=== PATIENT | female | born 1995 | race Caucasian/White ===

== ENCOUNTER 2025-08-15 09:33 | Outpatient (REF) | payer OTHER, SELFPAY ==
[2025-08-15 13:13] LABS: MANUAL DIFF FLAG NO
[2025-08-15 13:16] LABS: Hematocrit 45.4 % (37.0-47.0); Hemoglobin 14.8 g/dl (12.0-16.0); Imm Gran Abs Auto 0.08 X10*3/uL (0.00-0.03); Imm Gran Pct Auto 0.7 % (0.0-0.4); Lymphocytes Absolute Auto 3.4 X10*3/uL (1.2-4.9); Mean Corpuscular HGB Conc 32.6 g/dl (31.0-35.0); Mean Corpuscular Hemoglobin 27.9 pg (27.0-33.0); Mean Corpuscular Volume 85.5 fL (80.0-98.0); NRBC Abs Auto 0.000 X10*3/uL (0.0-0.012); NRBC Pct Auto 0.0 /100WBC (0.0-0.2); Platelet Count 261 X10*3/uL (160-400); Red Blood Count 5.31 X10*6/uL (4.20-5.50); White Blood Count 11.1 X10*3/uL (4.8-10.8)
[2025-08-15 13:39] LABS: Alanine Aminotransferase 46 U/L (0-31); Albumin Level 4.6 g/dL (3.5-5.0); Alkaline Phosphatase 98 U/L (39-117); Anion Gap 12 (12-20); Aspartate Amino Transferase 28 U/L (5-31); Blood Urea Nitrogen 12 mg/dL (9-16); Calcium 9.5 mg/dL (8.4-10.2); Carbon Dioxide 25 mmol/L (22-29); Chloride 112 mmol/L (96-108); Cholesterol 147 mg/dL (<200); Estimated Glomerular Filt Rate > 60; HDL Cholesterol 33 mg/dL (>40); Potassium 4.8 mmol/L (3.3-5.1); Sodium 144 mmol/L (135-145); Total Protein 6.9 g/dL (6.5-8.0); Triglycerides 140 mg/dL (<150)
[2025-08-15 15:17] LABS: Free T4 (Free Thyroxine) 1.01 ng/dL (0.71-1.85)
[2025-08-21 13:08] LABS: Testosterone, Free 10.8 pg/mL (0.1-6.4)
== END 2025-08-15 09:34 | disposition home or self-care (01) ==
LOC: HO.10HDL 09:33
PROVIDERS: Visit Provider Physician Assistant
DX: Z00.00 Encounter for general adult medical examination without abnormal findings (principal); J45.909 Unspecified asthma, uncomplicated; E66.9 Obesity, unspecified; Z68.38 Body mass index [BMI] 38.0-38.9, adult; E28.2 Polycystic ovarian syndrome; F31.9 Bipolar disorder, unspecified; F17.210 Nicotine dependence, cigarettes, uncomplicated; Z71.6 Tobacco abuse counseling; Z71.3 Dietary counseling and surveillance
CPT/HCPCS: 36415; 80048; 80061; 80076; 82306; 82627; 83036; 84402; 84403; 84439; 84443; 85025; 99212; 99385

== ENCOUNTER 2025-08-15 09:33 | Outpatient (AMB) | payer OTHER, SELFPAY ==
--- NOTE | 2025-08-15 09:37 | A.OFFPC_ITS ---
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 Accompanied by: Self / Same As Patient Allergies haloperidol (From Haldol) Allergy (Severe, Verified 08/15/25 09:40) Anaphylaxis Medication List - Last Reconciled 08/15/25 by ARMANI Henao medroxyprogesterone (Provera) 5 mg PO DAILY Tobacco use date assessed: 08/15/25 Dental Screening Dental Screen Date: 08/15/25 Did you have a dental visit in the last 12 months?: No Did you have a dental problem in the last 6 months where you did not have access to dental care?: No Was dental information given to patient?: Patient declined HPI HPI Comments History of Present Illness Details 29-year-old female with history of asthm a, PCOS, obesity who is a current 1 pack cigarettes per day presenting to the office today to establish care and for annual physical exam. She was last seen at [place] over 1 year ago. She currently lives at home with her fiance as well as 2 children-ages 2 and 10-and feels safe there. She is currently not employed, takes care of her children. She continues smoking 1 pack of cigarettes per day. Rare alcohol use. She does smoke marijuana but no other illicit drug use. No vaping. PCOS-diagnosed years ago. She does endorse irregular periods stating they will occasionally come monthly or be absent for several months. She does experience lower abdominal/pelvic cramping. No excessive hair growth. Does have significant trouble losing weight. Cigarette smoking-smokes 1 pack per day ongoing for years. She has tried nicotine replacement without effect. She is interested in Chantix Obesity- BMI 38.0. Does not eat much. Munches throughout the day, not healthy food. Craves east foods due to decreased appetite. Was going to the gym 5 times per week for one hour per day. She declines referral to nutrition and declines prescription for metformin given presumed insulin resistance related to her PCOS Concerns: As above Health maintenance: Due for rn gynecology Colonoscopy age 46 Mammograms age 41 Weight management as above Sunscreen Annual eye exams-wears corrective lenses Advised to schedule dental exam Reviewed past medical, surgical, family, social history ROS: General: No fevers, malaise, unintentional weight loss HEENT: No blurred vision, diplopia. No sore throat, nasal congestion, rhinorrhea, sinus pain, ear pain. No hearing loss Neck - no adenopathy Cardiovascular: No chest pain, palpitations, or leg edema Respiratory: No shortness of breath, wheezing, cough Breast: No pain, palpable lumps, nipple inversion GI: No dysphagia, odynophagia, globus sensation. No abdominal pain, nausea, vomiting, diarrhea, constipation, melena, hematochezia : No dysuria, hematuria, increased urinary frequency, decreased urinary output. 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 No AH/VH. No SI/HI Skin: No rashes or lesions EXAM: Constitutional - Awake and Alert, No apparent distress Eyes - PERRLA, EOMI. Anicteric Ears - external ears normal, canals clear, TMs intact and pearly rodriguez with good cone of light Nose- septum midline, nares clear, no sinus tenderness Mouth/throat- mucosa moist, tongue and uvula midline, no erythema/edema or tonsillar adenopathy. Neck-trachea midline, thyroid symmetric without palpable nodules, no adenopathy Cardiovascular - S1S2, RRR, No edema Respiratory - Normal lung expansion, Normal respiratory effort, No respiratory distress, CTA bilaterally Gastrointestinal - NT / ND; +BS; No rebound or guarding - No CVA tenderness Extremities - no calf tenderness bilaterally, no swelling Musculoskeletal - Normal inspection, normal ROM Skin - Warm/Dry, no concerning lesions Neurological - Alert & oriented x3, CN II-XII in tact, 5/5 strength BUE and BLE, 2+ patellar reflexes, sensation intact Psychological - Appropriate affect PFSH Medical History Cigarette smoker Amenorrhea Bipolar disorder Obesity Asthma PCOS (polycystic ovarian syndrome) Surgical History S/P urethral surgery Family History Mother HTN (hypertension) Diabetes Chest pain Social History Housing: Apartment Alcohol intake: current Alcohol intake frequency: holidays/special occasions only Patient Tobacco Use Status: Current everyday Tobacco user e-Cigarette/Vaping Use: Never Used Substance Use Type: Marijuana service: No Current occupational status: disabled Cognitive needs: No Hearing needs: No Vision needs: Yes (Rx glasses prn) Questionnaire PHQ-9 Over the last 2 weeks, how often have you been bothered by any of the following problems? 1. Little interest or pleasure in doing things: not at all 2. Feeling down, depressed, or hopeless: not at all 3. Trouble falling or staying asleep, or sleeping too much: more than half the days 4. Feeling tired or having little energy: more than half the days 5. Poor appetite or overeating: more than half the days 6. Feeling bad about yourself - or that you are a failure or have let yourself or your family down: not at all 7. Trouble concentrating on things, such as reading the newspaper or watching television: not at all 8. Moving or speaking so slowly that other people could have noticed. Or the opposite - being so fidgety or restless that you have been moving around a lot more than usual: not at all 9. Thoughts that you would be better off or of hurting yourself in some way: not at all Total score: 6 Depression Screening Interpretation: Positive Depression Screening Done: Yes Source: Developed by Drs. Celestino Espinoza, Sherrie Neumann, Kevin Gray and colleagues, with an educational arianna from [employer]. Thrive Questionnaire Date Thrive assessed: 08/15/25 I am a: Patient What is your living situation today?: I have a steady place to live Within the past 12 months, did the food you bought not last and you didn't have the money to get more?: Never true Within the past 12 months, did you worry whether your food would run out before you got money to buy more?: Never true Do you have trouble paying for medicines?: No Do you have trouble getting transportation to medical appointments?: No Do you have trouble paying your heating and electricity bill?: No Do you have trouble taking care of your child, family member or friend?: No Do you have trouble with day-to-day activities such as bathing, preparing meals, shopping, managing finances, etc.?: No Are you currently unemployed and looking for a job?: No Are you interested in more education?: No Please select the resources that you would like help with: None THRIVE Score: 0 ANA LILIA-7 AMB Questionnaire ANA LILIA-7 Date ANA LILIA - 7 assessed: 08/15/25 Feeling nervous, anxious, or on edge: 1 = Several days Not being able to stop or control worryin = Not at all Worrying too much about different things: 0 = Not at all Trouble relaxin = Not at all Being so restless that it is hard to sit still: 0 = Not at all Becoming easily annoyed or irritable: 2 = More than half the days Feeling afraid as if something awful might happen: 0 = Not at all Total ANA LILIA-7 score (0-4 normal; 5-9 mild; 10-14 moderate; 15-21 severe): 3 Source: Developed by Drs. Celestino Espinoza, Sherrie Neumann, Kevin Gray and colleagues, with an educational arianna from [employer]. Physical exam (Primary Care) Vital Signs: Last Vital Signs Temp 96.9 F 08/15/25 09:41 Pulse 77 08/15/25 09:41 Resp 16 08/15/25 09:41 BP 116/68 08/15/25 09:41 Pulse Ox 96 08/15/25 09:41 Oxygen Delivery Method Room Air 08/15/25 09:41 BMI result Body Mass Index 38.0 Tobacco/Smoking Status: Tobacco use Status Tobacco use date assessed 08/15/25 08/15/25 09:43 Patient Tobacco Use Status Current everyday Tobacco 08/15/25 09:43 e-Cigarette/Vaping Use Never Used 08/15/25 09:43 PHQ-9: PHQ-9 Score PHQ-9: Total score 6 08/15/25 10:39 Depression Screening Interpretation: Positive Thrive Assessment: Date of Thrive Assessment Date Thrive assessed 08/15/25 08/15/25 10:39 Coding Level of Care Code Est Pt Level 4 (36114) New Pt Prev Care 18-39yr(76799 Diagnoses Routine medical exam Z00.00 Amenorrhea N91.2 Asthma J45.909 Obesity E66.9 PCOS (polycystic ovarian syndrome) E28.2 Bipolar disorder F31.9 Cigarette smoker F17.210 Assessment & Plan Assessment & Plan (1) Routine medical exam: Code(s): Z00.00 - Encounter for general adult medical examination without abnormal findings Category: Medical Plan: 21-year-old female presenting for annual physical exam. Plan as below (2) Amenorrhea: Code(s): N91.2 - Amenorrhea, unspecified Category: Medical Plan: Likely related to PCOS. Provera prescribed. She is also referred to rn gynecology for further evaluation and management (3) Asthma: Code(s): J45.909 - Unspecified asthma, uncomplicated Category: Medical Plan: Uncontrolled. Add Advair for maintenance therapy. Counseled on dosing and advised to rinse mouth well following use. Continue albuterol only as needed for shortness of breath, goal less than twice weekly (4) Obesity: Code(s): E66.9 - Obesity, unspecified Category: Medical Plan: She has made significant weight loss efforts in the past without any significant improvements. She is encouraged to return to the gym for at least 150 minutes of moderate intensity exercise per week. She declines referral to nutrition. Is agreeable to referral to weight management (5) PCOS (polycystic ovarian syndrome): Code(s): E28.2 - Polycystic ovarian syndrome Category: Medical Plan: Check testosterone levels as well as DHEA. Amenorrhea as above. Declines metformin at this time which can help with insulin resistance. Refer to rn gynecology for further evaluation and management. Provera prescribed to induced menses as above (6) Bipolar disorder: Comment: Treated age 19 Code(s): F31.9 - Bipolar disorder, unspecified Category: Medical Plan: Stable. Not currently on medications (7) Cigarette smoker: Code(s): F17.210 - Nicotine dependence, cigarettes, uncomplicated Category: Social Hx Plan: Smoking cessation advised. Has not had any improvements with nicotine replacement therapies. Would like to try Chantix. We did discuss significant side effects and she is advised to discontinue the medication should these arise and contact the office. However, if symptoms are severe, advised to present to the ED Plan Routine screening labs as ordered below Referred for Pap smear Continue following for annual skin exams and use sun protection Annual eye exams Advised to schedule dental exam Wear seat belt in car Recommend regular exercise and healthy diet Follow-up in 1 year for annual physical exam. Orders: Orders Lipid Panel Today E28.2 - Polycystic ovarian syndrome, Z00.00 - Encounter for general adult medical examination without abnormal findings Vitamin D 25-OH Total Today E28.2 - Polycystic ovarian syndrome, Z00.00 - Encounter for general adult medical examination without abnormal findings Basic Metabolic Panel Today E28.2 - Polycystic ovarian syndrome, Z00.00 - Encounter for general adult medical examination without abnormal findings Complete Blood Count Auto Diff Today E28.2 - Polycystic ovarian syndrome, Z00.00 - Encounter for general adult medical examination without abnormal find ings Liver Panel Today E28.2 - Polycystic ovarian syndrome, Z00.00 - Encounter for general adult medical examination without abnormal findings Hemoglobin A1c Today E28.2 - Polycystic ovarian syndrome, Z00.00 - Encounter for general adult medical examination without abnormal findings TSH reflex Free T4 Today E28.2 - Polycystic ovarian syndrome, Z00.00 - Encounter for general adult medical examination without abnormal findings Testosterone, Free/Total Today E28.2 - Polycystic ovarian syndrome DHEA Sulfate Today E28.2 - Polycystic ovarian syndrome Referrals SAILMAKER Referral E28.2 - Polycystic ovarian syndrome, Z12.4 - Encounter for screening for malignant neoplasm of cervix Medical Weight Management Referral E66.9 - Obesity, unspecified Medications: New albuterol sulfate 90 mcg/actuation (Ventolin HFA) 2 puffs inhalation Q6H PRN 8.5 grams 0RF shortness of breath or wheezing loratadine (Allergy Relief (loratadine)) 10 mg PO DAILY PRN 90 caps 0RF allergy symptoms, rash triamcinolone acetonide 0.1% 1 appl topical BID 30 grams 5RF medroxyprogesterone (Provera) 5 mg PO DAILY 10 tabs 0RF varenicline tartrate (Chantix Starting Month Box) PO PER PKG DIR 53 ea 0RF fluticasone propion-salmeterol 250-50 mcg/dose (Advair Diskus) 1 inh inhalation BID 180 ea 1RF Patient Instructions: Rash- take claritin and us triamcinolone Asthma- Advair disc twice daily to maintain asthma symptons- you will not feel this working like albuterol. Rinse mouth well following use. Albuterol as ne eded. 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 Provera given to induce menses. Referral to weight management
[2025-08-15 09:41] VITALS: BP 116/68; PULSE 77; RESP 16; TEMP 36.1; O2SAT 96; BMI 38.0
--- OUTSIDE RECORDS SUMMARY | 2025-08-15 10:54 | XMS_ITS | Clinical Summary ---
Author Organization [facility] [address] [facility] [address] Address [address] [place] [address] Phone Care Team Providers Care Ink Blender Name Role Phone Jacinda Woods DO Primary Care Provider [phone] Allergies Active Allergy Reactions Criticality Noted Date Comments Haloperidol Anaphylaxis High 06/07/2016 Haldol Medications permethrin (ELIMITE) 5 % cream Apply head to soles for 8-14 hours then rinse off. Repeat in 7 days 10/04/2020 Active naproxen (NAPROSYN) 500 mg tablet TAKE 1 TABLET BY MOUTH TWICE A DAY NEEDED FOR PAIN FOR 7 DAYS 03/11/2024 Active hydrOXYzine HCL (ATARAX) 10 mg tablet Take 1 tablet (10 mg total) by mouth. 10/04/2020 Active medroxyPROGESTER one (PROVERA) 10 mg tablet Take 1 tablet (10 mg total) by mouth 1 (one) time each day. 10 each 5 10/29/2024 Active Active Problems Problem Noted Date Diagnosed Date ADHD 10/16/2017 Anxiety and depression 10/16/2017 Bipolar 1 disorder 10/16/2017 Surgical History Surgery Date Site/Laterality Comments OTHER SURGICAL HISTORY 2005 PROCEDURE: [place] CLOSURE URETHROVAGINAL FISTULA WISDOM TOOTH EXTRACTION 2012 PROCEDURE: HISTORICAL WISDOM TEETH EXTRACTION Medical History Medical History Date Comments Bipolar 1 disorder (CMS/HCC V24, CMS/HCC V28) DX:Bipolar 1 disorder (HCC); COMMENT: hx of suicide attempts last one being 06/2015 Hx of suicide attempt DX:Hx of s uicide attempt Family History Medical History Relation Name Comments Other: Autism Brother 1 younger Hypertension Brother 2 Bipolar disorder Father Depression Mother Other: prediabetes Sister Relation Name Status Comments Brother 1 younger Alive Brother 2 Alive Father Alive Mother Alive Sister Alive Social History Tobacco Use Types Packs/Day Years Used Date Smoking Tobacco: Every Day Cigarettes Smokeless Tobacco: Never Alcohol Use Standard Drinks/Week Comments No 0 (1 standard drink = 0.6 oz pur e alcohol) Comments No Sex and Gender Information Value Date Recorded Sex Assigned at Not on file Legal Sex Female 11:30 PM EST Gender Identity Not on file Sexual Orientation Not on file Obstetrics History Para Term AB IAB SAB Ectopic Multiple Livin g Live Births 1 1 1 1 1 Date Outcome GA Total Labor Labor/2nd/3rd Weight Sex Type Anes PTL Rissa A1 A5 Name Clin 2014 Term 42w 0d M Vag-S pont Epidur al Livin g jignesh Comments:[facility] Last Filed Vital Signs Vital Sign Reading Time Taken Comments Blood Pressure 135/76 10/29/2024 11:07 AM EST Pulse 80 10/29/2024 11:07 AM EST Temperature - - Respiratory Rate - - Oxygen Saturation - - Inhaled Oxygen Concentration - - Weight 95.3 kg (210 lb) 10/29/2024 11:07 AM EST Height - - Body Mass Index - - Plan of Treatment Health Maintenance Due Date Last Done Comments Pneumococcal Vaccine: Pediatrics (0 to 5 Years) and At-Risk Patients (6 to 49 Years) (1 of 2 - PCV) 2015 Social Influencers of Health Screening 08/03/2022 Cholesterol Screening (Lipid Panel) 10/16/2022 10/16/2017 Depression Screening 08/25/2024 DTaP,Tdap,and Td Vaccines (7 - Td or Tdap) 08/30/2024 08/30/2014, 05/09/2002, 06/08/1998, Additional history exists COVID-19 Vaccine ( - season) 2025 Influenza Vaccine (#1) 2025 05/25/2014 Cervical Cancer Screening: Pap Smear 10/30/2027 10/29/2024, 09/22/2020, 09/22/2020, Additional history exists RSV Immunization Adult Patients (1 - 1-dose 75+ series) 2071 Hepatitis B Vaccines Completed 10/09/1997, 1996, 1996 HIB Vaccines Completed 01/06/1998, 03/25, 02/06/1997, Additional history exists MMR Vaccines Completed 05/06/2001, 01/06/1998 IPV Vaccines Completed 05/09/2002, 03/25, 02/06/1997, Additional history exists Meningococcal ACWY Vaccine Aged Out 05/25/2008 N o longer eligible based on patient's age to complete this topic Varicella Vaccines Aged Out 05/25/2008, 05/09/1997 No longer eligible based on patient's age to complete this topic HPV Vaccines Completed 10/12/2013, 11/2012, 04/08/2013 HIV Screening Completed 10/16/2017 Hepatitis C Screening Completed 10/16/2017 Hepatitis A Vaccines Aged Out No long er eligible based on patient's age to complete this topic Meningococcal B Vaccine Aged Out No l onger eligible based on patient's age to complete this topic RSV Immunization Patients Under 20 months Aged Out No longer eligible based on patient's age to complete this topic Procedures Procedure Name Priority Date/Time Associated Diagnosis Comments PAP SMEAR Routine 10/29/2024 11:25 AM EST Encounter for annual physical examination excluding gynecological examination in a patient older than 17 years HEPATITIS C SCREENING Routine 10/16/2017 HIV SCREENING Routine 10/16/2017 LIPID PANEL Routine 10/16/2017 from Last 3 Months or Most Recently Relevant to Health Maintenance Results * Pap smear (10/29/2024 11:25 AM EST) Interpretation Negative for intraepithelial lesion or malignancy 11/02/2024 8:38 AM EDT [facility] at 0838 EDT General Categorization Negative 11/02/2024 8:38 AM EDT [facility] Specimen Adequacy Satisfactory for evaluation, endocervical/rosas sformation zone component present 11/02/2024 8:38 AM EDT [facility] Pap Methodology Liquid Based Pap Test 11/02/2024 8:38 AM EDT [facility] Disclaimer The Pap test is a screening test which carries an inherent false negative rate. These test results should be correlated with the patient's clinical findings and history. This Pap test was processed using an automated screening system. Technical cytopathology services provided by [facility], at [address] [place] [address] (CLIA # [id number]/Palomo Barnett MD, Booster Assembler.) 11/02/2024 8:38 AM EDT [facility] Console Pap Interpretation Reported 11/02/2024 8:38 AM EDT [facility] Brushing Cervix uteri structure / Unknown 10/29/2024 11:25 AM EST 10/29/2024 11:25 AM EST Jamie Zavaleta [facility] CYTOLOGY ORDERABLES Final Result [facility] [address] [place] [address], * HIV Screening (10/16/2017) HIV Screening abstracted Historical Provider HEALTH MAINTENANCE Final Result * Hepatitis C Screening (10/16/2017) Pathologist [facility] Hepatitis C Screening abstracted [facility] Provider HEALTH MAINTENANCE Final Result * Lipid panel (10/16/2017) LDL/HDL Ratio 4 0 - 4 Triglycerides 93 0 - 150 mg/dL Cholesterol 153 0 - 200 mg/dL HDL 40 >=40 mg/dL LDL Cholesterol 94 0 - 100 mg/dL Blood Venous blood specimen / Unknown Historical Provider LAB BLOOD ORDERABLES Jessica l Result from Last 3 Months or Most Recently Relevant to Health Maintenance Insurance [facility] [employer] Care Teams Ink Blender Relationship Specialty Start Date End Date Jacinda Woods DO PCP - General Internal Medicine 11/08/21
== END 2025-08-15 10:30 | disposition home or self-care (01) ==
LOC: HO.HMCHD 09:33
PROVIDERS: Visit Provider Physician Assistant
DX: Z00.00 Encounter for general adult medical examination without abnormal findings (principal); F31.9 Bipolar disorder, unspecified; E28.2 Polycystic ovarian syndrome; J45.909 Unspecified asthma, uncomplicated; E66.9 Obesity, unspecified; F17.210 Nicotine dependence, cigarettes, uncomplicated

== ENCOUNTER 2025-08-19 08:27 | Outpatient (REF) | payer OTHER, SELFPAY ==
--- OUTSIDE RECORDS SUMMARY | 2025-08-19 08:30 | XMS_ITS | Clinical Summary ---
Author Organization [facility] [address] [facility] [address] Address [address] [place] [address] Phone Care Team Providers Care Equine Vet Name Role Phone Jacinda Woods DO Primary Care Provider [phone] Allergies Active Allergy Reactions Criticality Noted Date [...] Site/Laterality Comments OTHER SURGICAL HISTORY 2005 PROCEDURE: [place] CLOSURE URETHROVAGINAL FISTULA WISDOM TOOTH EXTRACTION 2012 [...] Vag-S pont Epidur al Livin g jignesh Comments:[facility] Last Filed Vital Signs Vital Sign Reading [...] lesion or malignancy 11/02/2024 8:38 AM EDT [facility] at 0838 EDT General Categorization Negative 11/02/2024 8:38 AM EDT [facility] Specimen Adequacy Satisfactory for evaluation, endocervical/rosas sformation zone component present 11/02/2024 8:38 AM EDT [facility] Pap Methodology Liquid Based Pap Test 11/02/2024 8:38 AM EDT [facility] Disclaimer The Pap test is a screening test which carries an inherent false negative rate. These test results should be correlated with the patient's clinical findings and history. This Pap test was processed using an automated screening system. Technical cytopathology services provided by [facility], at [address] [place] [address] (CLIA # [id number]/Palomo Barnett MD, Technical Assistant.) 11/02/2024 8:38 AM EDT [facility] Console Pap Interpretation Reported 11/02/2024 8:38 AM EDT [facility] Brushing Cervix uteri structure / Unknown 10/29/2024 11:25 AM EST 10/29/2024 11:25 AM EST Jamie Zavaleta [facility] CYTOLOGY ORDERABLES Final Result [facility] [address] [place] [address], * HIV Screening (10/16/2017) HIV Screening abstracted Historical Provider HEALTH MAINTENANCE Final Result * Hepatitis C Screening (10/16/2017) Pathologist [facility] Hepatitis C Screening abstracted [facility] Provider HEALTH MAINTENANCE Final Result * Lipid [...] Most Recently Relevant to Health Maintenance Insurance [facility] [employer] Care Teams Equine Vet Relationship Specialty Start Date End Date Jacinda Woods DO PCP - General Internal Medicine 11/08/21
== END 2025-08-19 08:28 | disposition home or self-care (01) ==
LOC: HO.LAB 08:27
PROVIDERS: PCP Physician Assistant; Visit Provider Physician Assistant
DX: E05.90 Thyrotoxicosis, unspecified without thyrotoxic crisis or storm (principal)
CPT/HCPCS: 36415; 84443